=== PATIENT | male | born 2005 | race Caucasian/White ===

== ENCOUNTER 2023-05-18 12:35 | Emergency (ER) | payer BC ==
[~2023-05-18] VITALS: Ht 177.8 cm; Wt 55.8 kg
[2023-05-18 12:59] VITALS: BP 111/75; PULSE 96; RESP 18; TEMP 98.2; O2SAT 98
[2023-05-18 14:10] VITALS: O2SAT 98
[2023-05-18 14:23] LABS: BASOPHILS % (AUTO) 0.2 % (0.0-2.0); EOSINOPHILS # (AUTO) 0.1 K/uL (0-0.4); EOSINOPHILS % (AUTO) 0.7 % (0.0-4.0); HEMOGLOBIN 14.7 g/dL (12.0-18.0); LYMPHOCYTES # (AUTO) 0.8 K/uL (2.0-11.5); LYMPHOCYTES % (AUTO) 6.1 % (20.5-51.1); MEAN CORPUSCULAR HEMOGLOBIN 28 pg (27-31); MEAN CORPUSCULAR HGB CONC 34 g/dL (33-37); MEAN CORPUSCULAR VOLUME 82.6 fL (80-94); MONOCYTES # (AUTO) 0.7 K/uL (0.8-1.0); MONOCYTES % (AUTO) 5.5 % (1.7-9.3); NEUTROPHILS # (AUTO) 10.8 K/uL (1.8-7.7); NEUTROPHILS % (AUTO) 87.5 % (42.2-75.2); PLATELET COUNT (AUTO) 313 K/uL (140-450); RED BLOOD CELL COUNT(AUTO) 5.33 MIL/uL (4.20-6.10); RED CELL DISTRIBUTION WIDTH 13.8 % (11.6-13.7); WHITE BLOOD COUNT (AUTO) 12.4 K/uL (4.5-11.0)
[2023-05-18 14:32] LABS: APPEARANCE,URINE CLEAR (CLEAR); BILIRUBIN,URINE NEGATIVE (NEGATIVE); BLOOD, URINE NEGATIVE (NEGATIVE); COLOR,URINE YELLOW (YELLOW); LEUKOCYTE ESTERASE ,URINE NEGATIVE (NEGATIVE); NITRITE, URINE NEGATIVE (NEGATIVE); PROTEIN,URINE NEGATIVE (NEGATIVE); UGLUCOSE TRACE (NEGATIVE); UROBILINOGEN,URINE 0.2 EU/dL (0.2 - 1)
[2023-05-18 14:44] LABS: ANION GAP 9.3 (8-16); CARBON DIOXIDE 30.8 mmol/L (21-32); CREATININE 0.7 mg/dL (0.6-1.3); POTASSIUM 4.1 mmol/L (3.5-5.1)
[2023-05-18 14:46] LABS: ALBUMIN 4.3 g/dL (3.4-5.0); BILIRUBIN,DIRECT 0.1 mg/dL (0.0-0.3); TOTAL BILIRUBIN 0.5 mg/dL (0.0-1.0); TOTAL PROTEIN, SERUM 8.8 g/dL (6.4-8.2)
[2023-05-18 15:03] LABS: CALCIUM 9.2 mg/dL (8.5-10.1)
[2023-05-18] MEDS ORDERED: KETOROLAC 30 MG/ML VIAL IM ONE (15:45)
[2023-05-18] MEDS ORDERED: ONDANSETRON 4 MG ODT PO ONE (15:45)
[2023-05-18] MEDS ORDERED: KETOROLAC 30 MG/ML VIAL IVP ONE (16:05)
[2023-05-18 16:09] VITALS: O2SAT 98
[2023-05-18] MEDS ORDERED: ACET-10509 PO (17:50)
[2023-05-18] MEDS ORDERED: BEN10 PO (17:50)
[2023-05-18] MEDS ORDERED: ONDA-188 PO (17:50)
[2023-05-18 18:05] VITALS: BP 115/79; PULSE 79; RESP 19; TEMP 98.2; O2SAT 98
== END 2023-05-18 18:05 | disposition home or self-care (01) ==
LOC: MED 12:35
DX: K52.9 Noninfective gastroenteritis and colitis, unspecified (principal); Z79.899 Other long term (current) drug therapy
CPT/HCPCS: 36415; 74176; 74177; 80048; 80076; 81003; 83690; 85025; 96374; 99285; Q0162; Q9967; J1885